=== PATIENT | male | born 1990 | race Caucasian/White ===

== ENCOUNTER → 2017-09-23 | Day surgery (SDC) | payer OTHER ==
[2017-09-07 11:08] VITALS: Ht 177.8 cm; Wt 77.3 kg
[~2017-09-23] VITALS: Ht 177.8 cm; Wt 77.3 kg
[~2017-09-23] MED LIST: AMIT150T PO; BUPR-79 PO; CHOL20009 PO; DICY20TA10 PO; DIPH-416 PO; FENTANYL CITRATE INJ 50 MCG/1 ML 2 ML VIAL ONE; FIBETAB PO; GLUC500C4 PO; HYOS0.1255 PO; LIDOCAINE HCL 2% 2 ML VIAL (20MG/ML) ONE; LORA-741 PO; MISCCAP80 PO; MULT-506 PO; PROPOFOL IV EMULSION 10 MG/ML 20 ML VIAL IV ONE; RANI150T85 PO; SODIUM CHLORIDE 0.9% 500ML 500 ML IV ONE; ZOLOFT PO
--- NOTE | 2017-09-23 16:20 | Endo History and Physical ---
History & Physical Date of Service: Sep 23, 2017. Chief Complaint: Abdominal pain, Bloating, and reflux Referring Physician: [facility] History of Present Illness 27 yo CM who presents for EGD secondary to abdominal pain, bloating and GERD. Past Surgical History Hx Cardiac Surgery: No Hx Internal Defibrillator: No Hx Pacemaker: No Hx Abdominal Surgery: Yes (LAP MAMADOU ,LOWER ABDOMINAL HERNIA) Hx of Implantable Prosthesis: No Hx Post-Op Nausea and Vomiting: No Hx Cancer Surgery: No Hx Thoracic Surgery: No Hx Orthopedic: No Hx Urinary Tract Surgery: No Family History Colon CA Social History Smoking Status: Never Smoker Hx Substance Use: No Hx Alcohol Use: Yes (OCCASIONALLY) Allergies Coded Allergies: NO KNOWN DRUG ALLERGIES (Verified Allergy, Unknown, ., 09/07/17) Current Medications Reported Home Medications Medications Dose Route/Sig Max Daily Dose Days Date Category Glucosamine (Glucosamine Sulfate) 500 Mg Cap 1 Cap PO QAM 09/07/17 Reported Vitamin D (Cholecalciferol) 2,000 Unit Tab 1 Tab PO QAM 09/07/17 Reported Zantac (Ranitidine HCl) 150 Mg Tab 1 Tab PO BID 09/07/17 Reported Probiotic (Probiotic Product) 1 Cap Cap 1 Cap PO QAM 09/07/17 Reported Multivitamin (Multivitamins) Tab 1 Tab PO QAM 09/07/17 Reported Fiber Complete (Fiber) 62.5 Mg Tab 1 Tab PO BID 09/07/17 Reported Ativan (Lorazepam) 0.5 Mg Tab 0.5 Mg PO BID PRN 09/07/17 Reported Lomotil (Diphenoxylate HCl/Atropine) Tab 1 Tab PO QID PRN 09/07/17 Reported Levsin (Hyoscyamine Sulfate) 0.125 Mg Tab 0.125 Mg PO DIRECTED 09/07/17 Reported Dicyclomine Hcl 20 Mg Tab 1 Tab PO QID PRN 09/07/17 Reported [Zoloft] 1 Tab PO QAM 09/07/17 Reported Wellbutrin Sr (Bupropion HCl) 150 Mg Ertab 150 Mg PO QAM 09/07/17 Reported Amitriptyline Hcl 150 Mg Tab 1 Tab PO HS 30 09/07/17 Reported Vital Signs Weight (Kilograms): 77.27 Height (Feet): 5 Height (Inches): 10 Date Time Temp Pulse Resp B/P (MAP) Pulse Ox O2 Delivery O2 Flow Rate FiO2 09/23/17 15:11 36.6 80 125/82 (96) 100 Room Air Physical Exam General Appearance: WD/WN, no apparent distress Respiratory/Chest: Auscultation: breath sounds normal Cardiovascular: Heart Auscultation: RRR Abdomen: Bowel Sounds: normal Inspection & Palpation: soft, non-distended, no tenderness, guarding & rebound Assessment and Plan Assessment: 27 yo CM who presents for EGD secondary to abdominal pain, bloating and GERD. Plan: Proceed with EGD.
--- NOTE | 2017-09-23 16:47 | Discharge Instructions ---
Endoscopy Patient Instructions Date / Procedure(s) Performed Sep 23, 2017. EGD Allergy Information Coded Allergies: NO KNOWN DRUG ALLERGIES (Verified Allergy, Unknown, ., 09/07/17) Discharge Date / Findings Sep 23, 2017. Gastritis s/p biopsies Duodenal biopsies Medication Instructions OK to resume all medications today as prescribed Reported Home Medications Medications Dose Route/Sig Max Daily Dose Days Date Category Glucosamine (Glucosamine Sulfate) 500 Mg Cap 1 Cap PO QAM 09/07/17 Reported Vitamin D (Cholecalciferol) 2,000 Unit Tab 1 Tab PO QAM 09/07/17 Reported Zantac (Ranitidine HCl) 150 Mg Tab 1 Tab PO BID 09/07/17 Reported Probiotic (Probiotic Product) 1 Cap Cap 1 Cap PO QAM 09/07/17 Reported Multivitamin (Multivitamins) Tab 1 Tab PO QAM 09/07/17 Reported Fiber Complete (Fiber) 62.5 Mg Tab 1 Tab PO BID 09/07/17 Reported Ativan (Lorazepam) 0.5 Mg Tab 0.5 Mg PO BID PRN 09/07/17 Reported Lomotil (Diphenoxylate HCl/Atropine) Tab 1 Tab PO QID PRN 09/07/17 Reported Levsin (Hyoscyamine Sulfate) 0.125 Mg Tab 0.125 Mg PO DIRECTED 09/07/17 Reported Dicyclomine Hcl 20 Mg Tab 1 Tab PO QID PRN 09/07/17 Reported [Zoloft] 1 Tab PO QAM 09/07/17 Reported Wellbutrin Sr (Bupropion HCl) 150 Mg Ertab 150 Mg PO QAM 09/07/17 Reported Amitriptyline Hcl 150 Mg Tab 1 Tab PO HS 30 09/07/17 Reported Provider Instructions Activity Restrictions - No exercising or heavy lifting for 24 hours. - Do not drink alcohol the day of the procedure. - Do not drive a car or operate machinery until the day after the procedure. - Do not make any important decisions or sign important papers in 24 hours after the procedure. Following Day: - Return to full activity which may include returning to work/school. Diet Start your diet with liquids and light foods (jello, soup, juice, toast). Then eat your usual diet if not nauseated. Treatment For Common After Affects For mild abdominal pain, bloating, or excessive gas: - Rest - Eat lightly - Lie on right side Follow-Up Information Follow-up with [facility] as scheduled Anesthesia Information What You Should Know You have had a procedure that required some medicine to reduce anxiety and discomfort. This treatment is called moderate sedation. After receiving the treatment, you may be sleepy, but you will be able to breathe on your own. The effects of the treatment may last for several hours. Follow these instructions along with Activity/Diet recommendations noted above: * Do NOT do anything where dizziness or clumsiness would be dangerous. * Rest quietly at home today, then you can be up and about tomorrow. * Have a responsible person stay with you the rest of today. * You may have had an I.V. today. If so, you may take the dressing off later today. Recommendations Call your doctor if: * Trouble breathing * Continuous vomiting for more than 24 hours * Temperature above 101 degrees * Severe abdominal pain or bloating * Pain not relieved by pain medicine ordered * There is increased drainage or redness from any incision * A large amount of rectal bleeding greater than 2-3 tablespoons. (If you had a polyp/s removed or have hemorrhoids, a small amount of blood - from the rectum is to be expected.) * You have any unanswered questions or concerns. IN THE EVENT OF A SERIOUS EMERGENCY, GO TO THE NEAREST EMERGENCY ROOM Your discharge instructions were prepared by provider Mike Barone. Patient Instructions Signature Page Andres Almaraz Patient (or Guardian) Signature/Date: I have read and understand the instructions given to me by my caregivers. Caregiver/RN/Doctor Signature/Date: The above-named patient and/or guardian has received patient instructions on this date. + Original Patient Signature Page (only) stays with chart. Please make copy for patient.
--- NOTE | 2017-09-23 16:54 | GI REPORT ---
Procedure Date: 09/23/2017 4:04 PM Procedure: Upper GI endoscopy Indications: Epigastric abdominal pain, Abdominal bloating Medicines: Monitored Anesthesia Care Complications: No immediate complications. Estimated Blood Loss: Estimated blood loss: none. Procedure: Pre-Anesthesia Assessment: - Prior to the procedure, a History and Physical was performed, and patient medications and allergies were reviewed. The patient's tolerance of previous anesthesia was also reviewed. The risks and benefits of the procedure and the sedation options and risks were discussed with the patient. All questions were answered, and informed consent was obtained. Prior Anticoagulants: The patient has taken no previous anticoagulant or antiplatelet agents. ASA Grade Assessment: II - A patient with mild systemic disease. After reviewing the risks and benefits, the patient was deemed in satisfactory condition to undergo the procedure. After obtaining informed consent, the endoscope was passed under direct vision. Throughout the procedure, the patient's blood pressure, pulse, and oxygen saturations were monitored continuously. The scope was introduced through the mouth, and advanced to the second part of duodenum. The upper GI endoscopy was accomplished without difficulty. The patient tolerated the procedure well. Findings: The examined esophagus was normal. Localized mild inflammation characterized by erythema was found in the gastric antrum. Biopsies were taken with a cold forceps for histology. The examined duodenum was normal. Biopsies for histology were taken with a cold forceps for evaluation of celiac disease. Impression: - Normal esophagus. - Gastritis. Biopsied. - Normal examined duodenum. Biopsied. Recommendation: - Resume previous diet. - Continue present medications. - Await pathology results. - Return to primary care physician as previously scheduled. Mike Barone, 09/23/2017 4:53:24 PM This report has been signed electronically. Note Initiated On: 09/23/2017 4:04 PM I attest to the content of the Intraoperative Record and orders documented therein, exceptions below
--- NOTE | 2017-09-23 16:59 | Anesthesiology Progress Note ---
Anesthesia Post Op Note Date & Time Sep 23, 2017 at 16:59 Vital Signs Pain Intensity: 0 Vital Signs Past 12 Hours Date Time Temp Pulse Resp B/P (MAP) Pulse Ox O2 Delivery O2 Flow Rate FiO2 09/23/17 16:47 87 108/59 (75) 96 Room Air 09/23/17 15:11 36.6 80 125/82 (96) 100 Room Air Notes Mental Status: alert / awake / arousable, participated in evaluation Pt Amnestic to Procedure: Yes Nausea / Vomiting: adequately controlled Pain: adequately controlled Airway Patency, RR, SpO2: stable & adequate BP & HR: stable & adequate Hydration State: stable & adequate Anesthetic Complications: no major complications apparent
[2017-09-23 17:17] VITALS: BP 113/82; PULSE 77; O2SAT 98
== END | disposition home or self-care (01) ==
LOC: C.GI 14:35
PROVIDERS: ATTEND Internal Medicine
DX: R10.13 Epigastric pain (principal); K21.9 Gastro-esophageal reflux disease without esophagitis; R14.0 Abdominal distension (gaseous); K58.9 Irritable bowel syndrome, unspecified; F41.8 Other specified anxiety disorders; Z80.0 Family history of malignant neoplasm of digestive organs; Z79.899 Other long term (current) drug therapy; Z98.890 Other specified postprocedural states